=== PATIENT | female | born 1965 | race Caucasian/White ===

== ENCOUNTER → 2019-06-03 | Outpatient (CLI) | payer OTHER ==
--- NOTE | 2019-06-03 13:32 | XR ---
EXAMINATION TYPE: XR Hip Complete LT DATE OF EXAM: 06/03/2019 CLINICAL HISTORY: Left hip pain with bruising one week ago. TECHNIQUE: AP and frogleg views of the left hip are obtained. COMPARISON: None. FINDINGS: There is no acute fracture/dislocation evident in the left hip. There is mild axial joint space loss with moderate acetabular spurring. Additional spurring from the greater trochanter is pres ent. Left-sided pelvic phleboliths are seen. IMPRESSION: As above.
== END | disposition home or self-care (01) ==
LOC: RADXRYALE 13:14
PROVIDERS: ATTEND Internal Medicine
DX: I87.8 Other specified disorders of veins (principal); M76.9 Unspecified enthesopathy, lower limb, excluding foot
CPT/HCPCS: 73502

== ENCOUNTER 2020-12-02 16:26 | Emergency (ER) | payer OTHER ==
[2020-12-02 16:35] VITALS: RESP 18
[2020-12-02] MEDS ORDERED: FAMOTIDINE 20 MG TAB PO STA (17:22)
[2020-12-02] MEDS ORDERED: LORATADINE 10 MG TAB PO STA (17:22)
[2020-12-02] MEDS ORDERED: predniSONE 20 MG TAB PO STA (17:22)
--- NOTE | 2020-12-02 17:25 | ED ---
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 This that she received her first dose of the Kovic vaccine on the . Did not have any initial reaction to the injection however noticed today that she started having some itchiness to the area as well as a red rash and induration to the muscle. Denies previous history of vaccine reaction. She denies a sensation that her airway is closing off. No chest pain or shortness of breath. Has not taken any medications for her symptoms. Reports that she can't take Benadryl. Denies any numbness or tingling into her hand. No fevers or chills. Denies any additional symptoms include nausea, vomiting, abdominal pain. No other alleviating, precipitating or modifying factors - Related Data Previous Rx's Medication Instructions Recorded Famotidine [Pepcid] 20 mg PO BID #28 tablet 12/02/20 Loratadine [Claritin] 10 mg PO DAILY #20 tablet 12/02/20 predniSONE [Deltasone] 20 mg PO BID #10 tab 12/02/20 Allergies Allergy/AdvReac Type Severity Reaction Status Date / Time No Known Allergies Allergy Verified 12/02/20 16:35 Review of Systems ROS Statement: Those systems with pertinent positive or pertinent negative responses have been documented in the HPI. ROS Other: All systems not noted in ROS Statement are negative. Past Medical History Past Medical History: Osteoarthritis (OA) History of Any Multi-Drug Resistant Organisms: None Reported Past Surgical History: Orthopedic Surgery, Tonsillectomy Additional Past Surgical History / Comment(s): birthmark removed. Past Psychological History: No Psychological Hx Reported Smoking Status: Current every day smoker Past Alcohol Use History: Occasional Past Drug Use History: None Reported General Exam Limitations: no limitations Course Vital Signs 12/02/20 12/02/20 16:32 17:45 Temperature 99 F 99.0 F Pulse Rate 77 79 Respiratory 18 18 Rate Blood Pressure 146/77 118/65 O2 Sat by Pulse 99 Oximetry Medical Decision Making - Medical Decision Making Upon arrival patient is placed into room 19. A thorough history and physical exam was performed. Patient does have some redness and induration to the left bicep. No signs of compartment syndrome. Patient will be treated with C laritin, prednisone and Pepcid. Patient will be given prescriptions for these medications to take over the next 5 days. She is to follow-up with her primary care doctor in regards to her symptoms. We will need to discuss second dose with her primary care physician before getting it. She understood this. If she has any new or worsening symptoms return to the emergency room. Patient was discharged home in stable condition Disposition Clinical Impression: Allergic reaction Disposition: HOME SELF-CARE Condition: Stable Instructions (If sedation given, give patient instructions): General Allergic Reaction (ED) Additional Instructions: Take the medications for the next 5 days. Follow-up with your doctor. If your symptoms are improved, speak to them about getting the second vaccine Prescriptions: Loratadine [Claritin] 10 mg PO DAILY #20 tablet predniSONE [Deltasone] 20 mg PO BID #10 tab Famotidine [Pepcid] 20 mg PO BID #28 tablet Is patient prescribed a controlled substance at d/c from ED?: No Referrals: Zo Potter MD [Primary Care Provider] - 1-2 days Time of Disposition: 17:25
[2020-12-02 17:53] VITALS: BP 118/65; PULSE 79; TEMP 99
== END 2020-12-02 17:45 | disposition home or self-care (01) ==
LOC: EC 16:26
DX: R21 Rash and other nonspecific skin eruption (principal); T50.905A Adverse effect of unspecified drugs, medicaments and biological substances, initial encounter; F17.200 Nicotine dependence, unspecified, uncomplicated
CPT/HCPCS: 99282; J7512

== ENCOUNTER → 2023-10-14 | Outpatient (CLI) | payer OTHER ==
--- NOTE | 2023-10-14 08:56 | US ---
EXAMINATION TYPE: US abdomen complete DATE OF EXAM: 10/14/2023 COMPARISON: NONE CLINICAL INDICATION: Female, 58 years old with history of D45 POLYCYTHEMIA VERA; blood CA, left sided pain TECHNIQUE: Multiple sonographic images of the abdomen are obtained. 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 The intrahepatic portion of the IVC and proximal abdominal aorta are within normal limits. There is no evidence of cholelithiasis. Common bile duct is unremarkable. The visu alized portions of the pancreas are homogenous. The spleen is unremarkable. Kidneys are symmetric a nd free of hydronephrosis. No renal lesions are seen. IMPRESSION: 1. No evidence for acute process. 2. Hepatic steatosis 3. Gallbladder wall polyp suggested measuring up to 9 mm. Further evaluation with MRI MRCP with IV c ontrast may be of benefit. 4. Gallbladder Adenomyomatosis.
== END | disposition home or self-care (01) ==
LOC: RADUSWWP 08:11
PROVIDERS: ATTEND Internal Medicine
DX: K76.0 Fatty (change of) liver, not elsewhere classified (principal); D45 Polycythemia vera; D68.59 Other primary thrombophilia; K82.8 Other specified diseases of gallbladder; K82.4 Cholesterolosis of gallbladder; Z71.3 Dietary counseling and surveillance
CPT/HCPCS: 76700

== ENCOUNTER → 2023-12-02 | Outpatient (CLI) | payer BC, OTHER ==
--- NOTE | 2023-12-03 11:05 | MR ---
EXAMINATION TYPE: MR abdomen wo/w con DATE OF EXAM: 12/02/2023 8:35 AM CLINICAL INDICATION:Female, 58 years old with history of K82.4 CHOLESTEROLOSIS OF GALLBLADDER; PHH, C holesterolosis of gallbladder. COMPARISON: 10/14/2023. TECHNIQUE: Multiplanar multi-sequence imaging was performed without contrast. Post contrast imaging was performed. Post IV contrast subtraction images were also submitted for review. IV Contrast: 10 cc Gadavist FINDINGS: LOWER CHEST: No gross irregularity. ABDOMEN Liver: No evidence for cirrhosis.. Signal dropout on chemical shift in phase imaging compatible with hepatic steatosis. Gallbladder and Bile ducts: No evidence for ductal dilation, or biliary stricture or evidence of chol edocholithiasis. Gallbladder demonstrates mural nodular like areas measuring 9 mm each series 301 berta ge 17. Series 701 image 27. These have intrinsic high T1 signal on precontrast T1-weighted imaging. G allbladder fundal adenomyomatosis is also present. Fundal gallbladder adenomyomatosis is noted series 701 image 29 layering mixed signal fluid fluid level in the gallbladder. Pancreas: No ductal dilation. No evidence for solid mass. Spleen: Normal for size. Adrenal glands: Unremarkable. Kidneys: No evidence for obstructive uropathy. No suspicious renal masses. Stomach and Bowel: No evidence for bowel wall thickening or evidence for obstruction.. Peritoneum: No evidence of pneumoperitoneum or free fluid. Vasculature: No aortic aneurysm. Musculoskeletal: The osseous structures appear intact. Lymph Nodes: No gross evidence for lymphadenopathy. Abdominal wall: Unremarkable. IMPRESSION: 1. Findings suggestive of cholesterol polyps in the gallbladder lumen no abnormal suspicious enhance ment to suggest mass. 2. Gallbladder adenomyomatosis. 3. Hepatic steatosis.
== END | disposition home or self-care (01) ==
LOC: RADMRIMAIN 07:16
PROVIDERS: ATTEND Internal Medicine
DX: K82.8 Other specified diseases of gallbladder (principal); K76.0 Fatty (change of) liver, not elsewhere classified; K82.4 Cholesterolosis of gallbladder
CPT/HCPCS: 74183; A9585